=== PATIENT | female | born 1955 | race Caucasian/White ===

== ENCOUNTER 2019-10-16 12:39 | Day surgery (SDC) | payer MEDICARE, SELFPAY ==
[~2019-10-16] VITALS: Ht 154.9 cm; Wt 129.3 kg
[2019-10-16] MEDS ORDERED: MORPHINE SULFATE 10 MG/ML VIAL IVP PRN (13:30)
[2019-10-16] MEDS ORDERED: ONDANSETRON HCL 4 MG/2 ML VIAL IVP PRN ×2 (13:30→14:30)
[2019-10-16] MEDS ORDERED: ACETAMINOPHEN/CODEINE 300 MG-30 MG TABLET PO PRN (13:30)
[2019-10-16] MEDS ORDERED: HYDROmorphone 1 MG INJ. 1 MG/ML AMPUL IVP PRN (14:30)
[2019-10-16] MEDS ORDERED: METOCLOPRAMIDE HCL 10 MG/2 ML VIAL IVP PRN (14:30)
[2019-10-16] MEDS ORDERED: HYDROcodone/ACETAMIN 5-325 MG TAB (NORCO/ VICODIN) PO ONE ×2 (15:50→16:00)
[2019-10-16] MEDS ORDERED: HYDROcodone/ACETAMIN 5-325 MG TAB (NORCO/ VICODIN) ONE (16:26)
[2019-10-16 17:05] VITALS: BP_SYST 122
== END 2019-10-16 16:45 | disposition home or self-care (01) ==
LOC: SDS 12:39 → SMU 12:42 → SDS 16:45
PROVIDERS: ATTEND Surgery
DX: K64.8 Other hemorrhoids (principal); K60.3 Anal fistula; E66.01 Morbid (severe) obesity due to excess calories; I10 Essential (primary) hypertension; E03.9 Hypothyroidism, unspecified; Z79.899 Other long term (current) drug therapy; Z11.59 Encounter for screening for other viral diseases
CPT/HCPCS: 46255; 46020; 88304; U0003